=== PATIENT | male | born 1965 | race Caucasian/White ===

== ENCOUNTER → 2021-01-21 15:07 | Outpatient (BNVA) | payer OTHER, SELFPAY | PROVIDERS: PCP Internal Medicine; Referring Provider Internal Medicine; Visit Provider Surgery | DX: K64.4 Residual hemorrhoidal skin tags (principal) | CPT/HCPCS: 46600 ==

== ENCOUNTER 2023-01-25 09:55 | Emergency (ER) | payer OTHER, SELFPAY ==
--- NOTE | ~2023-01-25 | US_ITS ---
EXAMINATION: US ABDOMEN LIMITED CLINICAL INFORMATION: Right-sided abdominal pain. COMPARISON: None available. TECHNIQUE: Real-time imaging of the right upper quadrant abdominal viscera. FINDINGS: PANCREAS: Visualized portions unremarkable. LIVER: Diffuse increased echotexture without focal abnormality. GALLBLADDER: Unremarkable. COMMON BILE DUCT: Normal in caliber measuring 0.5 cm in diameter. RIGHT KIDNEY: 11.1 cm. Unremarkable. FREE FLUID: None. US/US abdomen limited IMPRESSION: Hepatic steatosis without other significant abnormality.
[2023-01-25 09:56] VITALS: BP 119/66; PULSE 74; RESP 16; TEMP 36.8; O2SAT 98; BMI 41.6
--- OUTSIDE RECORDS SUMMARY | 2023-01-25 10:12 | XMS_ITS | Continuity of Care Document ---
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 Name Role Phone Michael Eid MD Primary Care Physician Encounter [facility] [place] Date(s): 12/04/19 - 12/04/[address] [address]- [facility] Discharge Disposition: A-D/C Home Attending Physician: Sheldon Jackson MD Admitting Physician: Sheldon Jackson MD Referring Physician: Sheldon Jackson MD Allergies, Adverse Reactions, Alerts Substance Reaction Severity Status azithromycin upset stomach Active Vital Signs Most recent to oldest [Reference Range]: 1 2 3 Height 180 cm (12/04/19 10:05 AM) Weight 122.6 kg (12/04/19 10:05 AM) Oxygen Saturation [94-100 %] 97 % (12/04/19 1:36 PM) 99 % (12/04/19 12:45 PM) 99 % (12/04/19 12:39 PM) Pulse Rate [55-90 bpm] 81 bpm (12/04/19 10:05 AM) Body Mass Index [18.5-24.99] 37.84 *>HHI* (12/04/19 10:05 AM) Blood Pressure [90-138/55-84 mm Hg] 145/74mm Hg *H* (12/04/19 12:45 PM) 163/78mm Hg *H* (12/04/19 12:39 PM) 131/74mm Hg (12/04/19 12:05 PM) Respiratory Rate [16-30 br/min] 15 br/min *L* (12/04/19 12:39 PM) 11 br/min *L* (12/04/19 12:05 PM) 14 br/min *L* (12/04/19 12:00 PM) Temperature [96.8-100.4 DegF] 98.7 DegF (12/04/19 12:39 PM) 98.5 DegF (12/04/19 10:05 AM) Liters per Minute 2 L/min (12/04/19 12:05 PM) 2 L/min (12/04/19 12:00 PM) 2 L/min (12/04/19 11:55 AM) Mode of Delivery (Oxygen) Room air (12/04/19 1:36 PM) Room air (12/04/19 12:45 PM) Room air (12/04/19 12:39 PM) Blood pressure sites Arm, right (12/04/19 12:39 PM) Arm, left (12/04/19 11:55 AM) Arm, left (12/04/19 10:05 AM) Temperature Route Temporal (12/04/19 12:39 PM) Temporal (12/04/19 10:05 AM) Weight Obtained Via Standing scale (12/04/19 10:05 AM)
[2023-01-25 10:18] LABS: MANUAL DIFF FLAG NO
[2023-01-25 10:20] LABS: Basophils Percent Auto 0.2 % (0-2); Eosinophils Absolute Auto 0.2 X10*3/uL (0.0-0.4); Hematocrit 39.9 % (42.0-52.0); Hemoglobin 13.9 g/dl (14.0-18.0); Imm Gran Abs Auto 0.02 X10*3/uL (0.00-0.03); Imm Gran Pct Auto 0.2 % (0.0-0.4); Lymphocytes Absolute Auto 2.1 X10*3/uL (1.2-4.9); Lymphocytes Percent Auto 25.1 % (20-40); Mean Corpuscular HGB Conc 34.8 g/dl (31.0-36.0); Mean Corpuscular Hemoglobin 30.9 pg (27.0-33.0); Mean Corpuscular Volume 88.7 fL (80.0-98.0); Mean Platelet Volume 9.5 fL (9.4-12.4); Monocytes Absolute Auto 0.8 X10*3/uL (0.1-1.2); Monocytes Percent Auto 9.5 % (2-11); Neutrophils Absolute Auto 5.3 x10*3/uL (2.0-8.3); Platelet Count 245 X10*3/uL (160-400); Red Cell Distribution Width 12.2 % (11.0-16.0); White Blood Count 8.4 X10*3/uL (4.8-10.8)
[2023-01-25 10:35] LABS: Alanine Aminotransferase 25 U/L (0-40); Albumin Level 4.1 g/dL (3.5-5.0); Alkaline Phosphatase 64 U/L (39-117); Anion Gap 12 (12-20); Aspartate Amino Transferase 15 U/L (5-37); Bilirubin Total 0.7 mg/dL (0.0-1.0); Blood Urea Nitrogen 11 mg/dL (9-16); Calcium 9.1 mg/dL (8.4-10.2); Carbon Dioxide 24 mmol/L (22-29); Chloride 109 mmol/L (96-108); Creatinine Clr Calc Pharmacy 115.3; Estimated Glomerular Filt Rate > 60; Glucose Random 109 mg/dL (60-115); Potassium 4.4 mmol/L (3.3-5.1); Sodium 141 mmol/L (135-145); Total Protein 6.9 g/dL (6.5-8.0)
[2023-01-25 11:26] VITALS: BP 141/71; PULSE 66; RESP 16; TEMP 37.1; O2SAT 96
[2023-01-25 11:36] LABS: Appearance Urine Clear; Color Urine Yellow; Glucose Urine UA Negative (Negative); PH 8.5 (5.0-9.0); Urine Blood Negative (Negative)
[2023-01-25 11:37] LABS: Leukocyte Esterase Urine Negative (Negative); Nitrite Urine Negative (Negative); Urine Ketones Negative (Negative); Urine Protein Negative (Neg-Trace)
--- NOTE | 2023-01-25 11:46 | ED_ITS ---
HPI - Abdominal Pain General Chief Complaint: Abdominal Pain Stated Complaint: Sharp P Right Side Time Seen by Provider: 01/25/23 11:36 Source: patient Mode of arrival: ambulatory Limitations: no limitations History of Present Illness HPI narrative: 57-year-old male came in for evaluation of right upper quadrant abdominal pain. Patient's symptoms started 2 weeks ago mostly constant patient's symptoms worsen with standing or doing any yard work, food do not affect the pain, denies any fever or chills, no trauma or fall the abdomen. No fever, no chills, no recent travel, no sick contacts, no nausea, no vomiting, no blood in the bowel movement, normal bowel movement, no weight loss, never had similar symptoms before, no history of intra-abdominal surgery. Related Data Previous Rx's Medication Instructions Recorded losartan 50 mg tablet 50 mg PO DAILY #90 tabs 09/28/22 Allergies Allergy/AdvReac Type Severity Reaction Status Date / Time azithromycin AdvReac Unknown STOMACH Verified 04/08/21 14:22 UPSET Review of Systems Review of Systems All other systems are reviewed and are negative Constitutional: Reports as per HPI and Reports no additional constitutional complaints Eyes: Reports as per HPI and Reports no additional eye complaints Reports system reviewed and no additional complaints, except as documented Cardiovascular: Reports as per HPI and Reports no additional cardiovascular complaints Respiratory: Reports as per HPI and Reports no additional respiratory complaints Gastrointestinal: Reports as per HPI and Reports no additional gastrointestinal complaints Genitourinary: Reports no additional female genitourinary complaints Musculoskeletal: Reports no additional musculoskeletal complaints Skin/Breast: Reports system reviewed and no additional complaints, except as docu Psychiatric: Reports no additional psychiatric complaints Endocrine: Reports no additional endocrine complaints Hematologic/Lymphatic: Reports no additional hematologic/lymphatic complaints Allergic/Immunologic: Reports no additional allergic/immunologic complaints Reports system reviewed and no additional complaints, except as documented and Reports Abnormal speech present [facility] Past Medical History Medical History External hemorrhoids with complication Hypertension Morbid obesity Obesity Surgical History H/O detached retina repair History of colonoscopy Family History Family History Father Lung cancer Mother Dementia Brother MRSA (methicillin resistant staph aureus) culture positive Social History Social History Housing: House Alcohol intake: current Alcohol intake frequency: a few times a week Patient Tobacco Use Status: Never used Tobacco e-Cigarette/Vaping Use: Never Used Second Hand Smoke Exposure: No Advance Directives: No service: No Current occupational status: employed Physical Exam ED Vital Signs: Vital Signs - 24 hr 01/25/23 09:56 01/25/23 11:26 Temperature 98.2 F 98.7 F Pulse Rate 74 66 Respiratory Rate 16 16 Blood Pressure 119/66 141/71 H Pulse Oximetry 98 96 Oxygen Delivery Method Room Air Room Air BMI result Body Mass Index 41.6 Vital signs have been reviewed as appeared to be correct. Blood pressure normal. Heart rate normal. Respiration rate normal. Temperature normal. Oxygen saturation normal. Appearance: Alert. Oriented X3. No acute distress. Head: Normal external exam. Normocephalic. Atraumatic. No Mitchell signs noted. No raccoon eyes noted Eyes: PERRLA. EOMI. Conjunctiva and sclera normal. Eyelids normal. ENT: TM's Normal. Pharynx normal. Uvula midline. Moist mucous membranes. No trismus noted. No drooling noted. No muffled voice noted. Neck: Normal inspection. Neck supple. FROM. No adenopathy. Thyroid Normal. No meningeal signs. No neck mass noted. CVS: Normal heart rate and rhythm. Heart sound normal. No murmurs noted. Pulses normal throughout. Respiratory: No respiratory distress. Painless inspiration. Breath sounds normal. No wheezes/rales/rhonchi noted. Chest nontender. No accessory muscle usage noted or decreased air movement noted. Abdomen: Soft, no tenderness, no guarding, no rebound tenderness.. Bowel sounds normal in all 4 quadrants. No distention noted. No organomegaly noted. No visible injury noted. Back: No CVA tenderness. Full range of motion noted. Skin: Skin warm and dry. Normal skin color. Normal skin turgor. No rashes/lesions/lacerations noted. Extremities: No lower extremity edema. Extremities exhibit normal range of motion. Extremities nontender. Neuro: Oriented X 3. Cranial nerve exam: II-XII are grossly intact No motor deficit. No sensory deficit. Reflexes normal. Course Course Course Narrative: A 57-year-old male came in for evaluation of right upper abdominal area pain pain is more with standing or sitting for longer time, unremarkable workup an ultrasound of the abdomen and pelvis, as discussed with the patient bed rest, using heating pad. Medical Decision Making Differential Diagnosis Differential Diagnoses: The differential diagnosis associated with the presentation includes (ACS, biliary colic, pancreatitis, gastritis, kidney stone, severe electrolyte abnormality, severe anemia.) Admission/Observation Consideration of admission/observation: Escalation of care including admission/observation considered Lab Data MDM Lab Attestation statement: I reviewed the patient's lab results. 01/25/23 10:14 01/25/23 10:14 Labs: Lab Results 01/25/23 01/25/23 01/25/23 Range/Units 10:14 10:14 11:30 WBC 8.4 (4.8-10.8) X10*3/uL RBC 4.50 L (4.60-5.80) X10*6/uL Hgb 13.9 L (14.0-18.0) g/dl Hct 39.9 L (42.0-52.0) % MCV 88.7 (80.0-98.0) fL MCH 30.9 (27.0-33.0) pg MCHC 34.8 (31.0-36.0) g/dl RDW 12.2 (11.0-16.0) % Plt Count 245 (160-400) X10*3/uL MPV 9.5 (9.4-12.4) fL Immature Gran % (Auto) 0.2 (0.0-0.4) % Neut % (Auto) 63.0 (45-73) % Lymph % (Auto) 25.1 (20-40) % [place] % (Auto) 9.5 (2-11) % Eos % (Auto) 2.0 (0-4) % Baso % (Auto) 0.2 (0-2) % Lymph # (Auto) 2.1 (1.2-4.9) X10*3/uL [place] # (Auto) 0.8 (0.1-1.2) X10*3/uL Eos # (Auto) 0.2 (0.0-0.4) X10*3/uL Baso # (Auto) 0.0 (0.0-0.2) X10*3/uL Abs Immat Gran (auto) 0.02 (0.00-0.03) X10*3/uL Absolute Neuts (auto) 5.3 (2.0-8.3) x10*3/uL Absolute Nucleated RBC 0.000 (0.0-0.012) X10*3/uL Nucleated RBC % (auto) 0.0 (0.0-0.2) /100WBC Sodium 141 (135-145) mmol/L Potassium 4.4 (3.3-5.1) mmol/L Chloride 109 H (96-108) mmol/L Carbon Dioxide 24 (22-29) mmol/L Anion Gap 12 (12-20) BUN 11 (9-16) mg/dL Creatinine 0.94 (0.5-1.4) mg/dL Estim Creat Clear Calc 115.3 Estimated GFR > 60 Random Glucose 109 (60-115) mg/dL Calcium 9.1 (8.4-10.2) mg/dL Total Bilirubin 0.7 (0.0-1.0) mg/dL AST 15 (5-37) U/L ALT 25 (0-40) U/L Alkaline Phosphatase 64 (39-117) U/L Troponin I High Sens (<3.5-35.0) ng/L Total Protein 6.9 (6.5-8.0) g/dL Albumin 4.1 (3.5-5.0) g/dL Lipase 27 (8-78) U/L Urine Color Yellow Urine Appearance Clear Urine pH 8.5 (5.0-9.0) Ur Specific [place] 1.020 (1.005-1.025) Urine Protein Negative (Neg-Trace) mg/dL Urine Glucose (UA) Negative (Negative) mg/dL Urine Ketones Negative (Negative) mg/dL Urine Blood Negative (Negative) Urine Nitrite Negative (Negative) Ur Leukocyte Esterase Negative (Negative) 01/25/23 Range/Units 13:17 WBC (4.8-10.8) X10*3/uL RBC (4.60-5.80) X10*6/uL Hgb (14.0-18.0) g/dl Hct (42.0-52.0) % MCV (80.0-98.0) fL MCH (27.0-33.0) pg MCHC (31.0-36.0) g/dl RDW (11.0-16.0) % Plt Count (160-400) X10*3/uL MPV (9.4-12.4) fL Immature Gran % (Auto) (0.0-0.4) % Neut % (Auto) (45-73) % Lymph % (Auto) (20-40) % [place] % (Auto) (2-11) % Eos % (Auto) (0-4) % Baso % (Auto) (0-2) % Lymph # (Auto) (1.2-4.9) X10*3/uL [place] # (Auto) (0.1-1.2) X10*3/uL Eos # (Auto) (0.0-0.4) X10*3/uL Baso # (Auto) (0.0-0.2) X10*3/uL Abs Immat Gran (auto) (0.00-0.03) X10*3/uL Absolute Neuts (auto) (2.0-8.3) x10*3/uL Absolute Nucleated RBC (0.0-0.012) X10*3/uL Nucleated RBC % (auto) (0.0-0.2) /100WBC Sodium (135-145) mmol/L Potassium (3.3-5.1) mmol/L Chloride (96-108) mmol/L Carbon Dioxide (22-29) mmol/L Anion Gap (12-20) BUN (9-16) mg/dL Creatinine (0.5-1.4) mg/dL Estim Creat Clear Calc Estimated GFR Random Glucose (60-115) mg/dL Calcium (8.4-10.2) mg/dL Total Bilirubin (0.0-1.0) mg/dL AST (5-37) U/L ALT (0-40) U/L Alkaline Phosphatase (39-117) U/L Troponin I High Sens < 2.7 (<3.5-35.0) ng/L Total Protein (6.5-8.0) g/dL Albumin (3.5-5.0) g/dL Lipase (8-78) U/L Urine Color Urine Appearance Urine pH (5.0-9.0) Ur Specific [place] (1.005-1.025) Urine Protein (Neg-Trace) mg/dL Urine Glucose (UA) (Negative) mg/dL Urine Ketones (Negative) mg/dL Urine Blood (Negative) Urine Nitrite (Negative) Ur Leukocyte Esterase (Negative) Independent Interpretation I performed an independent interpretation of an: Ultrasound (Abdomen: Hepatic steatosis without other significant abnormality.) Radiology Impression Discussion of test interpretation with radiology: I have reviewed the radiologist's reading. (Hepatic steatosis without other significant abnormality.) Discharge Plan Discharge Clinical Impression: Pulled muscle Patient Disposition: Home, Self-Care Instructions: Muscle Strain (DC) Additional Instructions: Take ibuprofen 200 mg tablet /or Tylenol 500 mg tablet ([id number]) every 8 hours if needed for pain. Prescriptions: No Action losartan 50 mg tablet 50 mg PO DAILY Qty: 90 8RF Referrals: Michael Eid MD [Primary Care Provider] - Stand Alone Forms: Work/School Release Interventions: ED Discharge Assessment Last Done: 01/25/23 14:38 Discharge Date/Time: 01/25/23 14:39
[2023-01-25 12:16] LABS: Lipase 27 U/L (8-78)
[2023-01-25 14:09] LABS: Troponin-I High Sensitivity < 2.7 ng/L (<3.5-35.0)
== END 2023-01-25 14:39 | disposition home or self-care (01) ==
PROVIDERS: Emergency Provider Emergency Medicine; PCP Internal Medicine
DX: R10.11 Right upper quadrant pain (principal); Z79.899 Other long term (current) drug therapy
CPT/HCPCS: 36415; 76705; 80053; 81003; 83690; 84484; 85025; 99283; 99284

== ENCOUNTER 2023-10-21 09:54 | Outpatient (AMB) | payer OTHER, SELFPAY ==
[2023-10-21 09:57] VITALS: BP 132/90; PULSE 55; O2SAT 95; BMI 42.5
--- NOTE | 2023-10-21 09:57 | A.OFFPC_ITS ---
Vital Signs 10/21/23 09:57 Height 5 ft 10 in Weight 296 lb 0.6 oz BMI 42.5 BP 132/90 H Blood Pressure Location Lt brachial Position Sitting Pulse 55 Pulse Source Pulse Oximeter Pulse Oximetry (%) 95 Oxygen Delivery Method Room Air Intake Visit Reasons: annual exam not seen since 2020 Intake Note: Patient is here today for a physical. Bindery Helper Required: No Accompanied by: Self / Same As Patient Allergies azithromycin Adverse Reaction (Unknown, Verified 10/21/23 09:57) STOMACH UPSET Medication List - Last Reconciled 10/21/23 by Michael Eid MD losartan 50 mg PO DAILY timolol maleate 0.5% 1 drp ophthalmic (eye) BID Tobacco use date assessed: 10/21/23 Dental Screening Dental Screen Date: 10/21/23 Did you have a dental visit in the last 12 months?: Yes Did you have a dental problem in the last 6 months where you did not have access to dental care?: No Was dental information given to patient?: Patient has dentist HPI annual exam not seen since 2020 HPI Details HTN on Rx; compliant PFSH Medical History External hemorrhoids with complication Hypertension Morbid obesity Obesity Surgical History H/O detached retina repair History of colonoscopy Family History Father Lung cancer Mother Dementia Brother MRSA (methicillin resistant staph aureus) culture positive Social History Housing: House Alcohol intake: current Alcohol intake frequency: a few times a week Patient Tobacco Use Status: Never used Tobacco e-Cigarette/Vaping Use: Never Used Second Hand Smoke Exposure: No service: No Current occupational status: employed Cognitive needs: No Hearing needs: No Vision needs: No Questionnaire PHQ-9 Over the last 2 weeks, how often have you been bothered by any of the following problems? 1. Little interest or pleasure in doing things: not at all 2. Feeling down, depressed, or hopeless: not at all 3. Trouble falling or staying asleep, or sleeping too much: not at all 4. Feeling tired or having little energy: not at all 5. Poor appetite or overeating: not at all 6. Feeling bad about yourself - or that you are a failure or have let yourself or your family down: not at all 7. Trouble concentrating on things, such as reading the newspaper or watching television: not at all 8. Moving or speaking so slowly that other people could have noticed. Or the opposite - being so fidgety or restless that you have been moving around a lot more than usual: not at all 9. Thoughts that you would be better off or of hurting yourself in some way: not at all Total score: 0 Depression Screening Interpretation: Negative Depression Screening Done: Yes 12557 - PHQ-9 Billing: Yes Source: Developed by Drs. Bandar Medrano, Kadie Thomas, Claude Penny and colleagues, with an educational shaun from [employer]. Thrive Questionnaire Date Thrive assessed: 10/21/23 I am a: Patient What is your living situation today?: I have a steady place to live Within the past 12 months, did the food you bought not last and you didn't have the money to get more?: Never true Within the past 12 months, did you worry whether your food would run out before you got money to buy more?: Never true Do you have trouble paying for medicines?: No Do you have trouble getting transportation to medical appointments?: No Do you have trouble paying your heating and electricity bill?: No Do you have trouble taking care of your child, family member or friend?: No Do you have trouble with day-to-day activities such as bathing, preparing meals, shopping, managing finances, etc.?: No Are you currently unemployed and looking for a job?: No Are you interested in more education?: No Please select the resources that you would like help with: None Currently or been in a relationship where the following occur: no concerns reported THRIVE Score: 0 AUDIT C Alcohol Use Questionnaire (AUDIT-C) 1. How often do you have a drink containing alcohol?: 2-3 times a week 2. How many drinks containing alcohol do you have on a typical day when you are drinking?: 3 or 4 3. How often do you have six or more drinks on one occasion?: Never Total Score: 4 Score Reviewed/Action Taken: Yes SRINIVAS-7 AMB Questionnaire SRINIVAS-7 Date SRINIVAS - 7 assessed: 10/21/23 Feeling nervous, anxious, or on edge: 0 = Not at all Not being able to stop or control worryin = Not at all Worrying too much about different things: 0 = Not at all Trouble relaxin = Not at all Being so restless that it is hard to sit still: 0 = Not at all Becoming easily annoyed or irritable: 0 = Not at all Feeling afraid as if something awful might happen: 0 = Not at all Total SRINIVAS-7 score (0-4 normal; 5-9 mild; 10-14 moderate; 15-21 severe): 0 Source: Developed by Drs. Bandar Medrano, Kadie Thomas, Claude Penny and colleagues, with an educational shaun from [employer]. SRINIVAS-7 Assessment Billing SRINIVAS-7 Assessment Tool: SRINIVAS-7 Assessment 29827 Review of Systems Const Denies chills, Denies fatigue, Denies headache(s) and Denies weight loss Eyes Denies change in vision, Denies diplopia and Denies eye pain ENT Denies vertigo, Denies dizziness, Denies headache(s) and Denies nasal discharge Card Denies chest pain, Denies rapid heart rate and Denies dyspnea on exertion Resp Denies chest congestion, Denies cough, Denies pain with cough and Denies dyspnea on exertion GI Denies abdominal pain, Denies hematochezia and Denies change in bowel habits Musc Denies myalgias, Denies arthralgias and Denies joint swelling Skin/Breast Denies lesions and Denies unusual bruising Neuro Denies vertigo, Denies dizziness, Denies headache(s) and Denies focal weakness Endo Denies fatigue Physical exam (Primary Care) Vital Signs: Last Vital Signs Pulse 55 10/21/23 09:57 BP 132/90 H 10/21/23 09:57 Pulse Ox 95 10/21/23 09:57 Oxygen Delivery Method Room Air 10/21/23 09:57 BMI result Body Mass Index 42.5 Tobacco/Smoking Status: Tobacco use Status Tobacco use date assessed 10/21/23 10/21/23 09:58 Patient Tobacco Use Status Never used Tobacco 10/21/23 09:58 e-Cigarette/Vaping Use Never Used 10/21/23 09:58 PHQ-9: PHQ-9 Score PHQ-9: Total score 0 10/21/23 09:58 Depression Screening Interpretation: Negative Thrive Assessment: Date of Thrive Assessment Date Thrive assessed 10/21/23 10/21/23 10:03 Currently or been in a relationship where the following occur: no concerns reported Const General: cooperative, healthy appearing and no acute distress Orientation/consciousness: oriented to person, oriented to place and oriented to time HENMT Head: Yes normal to inspection, Yes normocephalic and Yes atraumatic Mouth: Normal oral and palatal mucosa present and tongue normal Throat: Yes posterior oropharynx normal and Yes uvula midline Eyes General: appearance normal, both eyes and all related structures Neck Neck: Yes normal visual inspection, Yes full ROM and Yes no lymphadenopathy Thyroid: Thyroid normal Carotids: normal carotid upstroke Chest Chest palpation & inspection: normal inspection of the chest Resp Effort & Inspection: normal respiratory effort and able to speak in complete sentences Auscultation: clear to auscultation bilaterally Cardio Jugular venous distension: no JVD Palpation: normal PMI Rate: regular rate Rhythm: regular rhythm Heart sounds: S1 normal heart sound present and S2 normal heart sound present GI Inspection: Yes normal to inspection Palpation (GI): Soft to palpation and No hepatosplenomegaly present Auscultation: normal bowel sounds General: Yes no CVA tenderness Back/Spine/Pelvis Back: no CVA tenderness Skin General skin exam: no rashes or lesions noted Neuro General: oriented to person, oriented to place and oriented to time Extrem General: Yes normal to inspection and Yes full ROM Assessment and Plan Assessment & Plan (1) Physical exam, annual: Code(s): Z00.00 - Encounter for general adult medical examination without abnormal findings Plan: due for labs (2) Hypertension: Code(s): I10 - Essential (primary) hypertension Plan: stable; same rx Orders: Orders Lipid Panel Today Z13.220 - Encounter for screening for lipoid disorders Thyroid Stimulating Hormone Today Z13.29 - Encounter for screening for other suspected endocrine disorder Complete Blood Count Auto Diff Today Z13.0 - Encounter for screening for diseases of the blood and blood-forming organs and certain disorders involving the immune mechanism Comprehensive [place]. Panel Fast Today Z13.9 - Encounter for screening, unspecified Prostate Specific Antigen Scr Today Z00.00 - Encounter for general adult medical examination without abnormal findings Referrals Gastroenterology Referral Z12.11 - Encounter for screening for malignant neoplasm of colon Coding Level of Care Code New Pt Prev Care 40-64y(64162) Diagnoses Physical exam, annual Z00.00 Hypertension I10 Additional Codes SRINIVAS-7 Assessment Billing - SRINIVAS-7 Assessment Tool: SRINIVAS-7 Assessment [id number] ([id number])
== END 2023-10-21 10:16 | disposition home or self-care (01) ==
PROVIDERS: PCP Internal Medicine; Visit Provider Internal Medicine
DX: Z00.00 Encounter for general adult medical examination without abnormal findings (principal); I10 Essential (primary) hypertension; E66.01 Morbid (severe) obesity due to excess calories; Z68.41 Body mass index [BMI] 40.0-44.9, adult
CPT/HCPCS: 99396

== ENCOUNTER 2023-10-21 10:21 | Outpatient (REF) | payer OTHER, SELFPAY ==
[2023-10-21 10:30] LABS: MANUAL DIFF FLAG NO
[2023-10-21 10:46] LABS: Basophils Percent Auto 0.4 % (0-2); Eosinophils Absolute Auto 0.2 X10*3/uL (0.0-0.4); Eosinophils Percent Auto 2.1 % (0-4); Hematocrit 45.5 % (42.0-52.0); Hemoglobin 15.7 g/dl (14.0-18.0); Imm Gran Abs Auto 0.02 X10*3/uL (0.00-0.03); Imm Gran Pct Auto 0.2 % (0.0-0.4); Lymphocytes Absolute Auto 2.3 X10*3/uL (1.2-4.9); Mean Corpuscular HGB Conc 34.5 g/dl (31.0-36.0); Mean Corpuscular Volume 89.9 fL (80.0-98.0); Mean Platelet Volume 9.6 fL (9.4-12.4); Monocytes Absolute Auto 0.7 X10*3/uL (0.1-1.2); Monocytes Percent Auto 8.7 % (2-11); Neutrophils Absolute Auto 5.3 x10*3/uL (2.0-8.3); Neutrophils Percent Auto 61.6 % (45-73); Platelet Count 258 X10*3/uL (160-400); Red Blood Count 5.06 X10*6/uL (4.60-5.80); Red Cell Distribution Width 12.3 % (11.0-16.0); White Blood Count 8.5 X10*3/uL (4.8-10.8)
[2023-10-21 11:32] LABS: Alanine Aminotransferase 29 U/L (0-40); Albumin Level 4.4 g/dL (3.5-5.0); Alkaline Phosphatase 69 U/L (39-117); Anion Gap 14 (12-20); Aspartate Amino Transferase 17 U/L (5-37); Bilirubin Total 0.7 mg/dL (0.0-1.0); Blood Urea Nitrogen 11 mg/dL (9-16); Calcium 10.1 mg/dL (8.4-10.2); Carbon Dioxide 27 mmol/L (22-29); Chloride 104 mmol/L (96-108); Cholesterol 219 mg/dL (<200); Estimated Glomerular Filt Rate > 60; Glucose Fasting 117 mg/dL (60-99); HDL Cholesterol 51 mg/dL (>40); LDL Cholesterol Calculated 142 mg/dL (<100); Potassium 5.4 mmol/L (3.3-5.1); Sodium 140 mmol/L (135-145); Total Protein 7.5 g/dL (6.5-8.0); Triglycerides 131 mg/dL (<150)
[2023-10-21 11:50] LABS: Thyroid Stimulating Hormone 1.88 uIU/mL (0.32-4.0)
== END 2023-10-21 10:22 | disposition home or self-care (01) ==
LOC: HO.LAB 10:21
PROVIDERS: PCP Internal Medicine; Visit Provider Internal Medicine
DX: Z13.29 Encounter for screening for other suspected endocrine disorder (principal); Z00.00 Encounter for general adult medical examination without abnormal findings; Z12.5 Encounter for screening for malignant neoplasm of prostate; Z13.220 Encounter for screening for lipoid disorders; Z13.0 Encounter for screening for diseases of the blood and blood-forming organs and certain disorders involving the immune mechanism; Z13.9 Encounter for screening, unspecified
CPT/HCPCS: 36415; 80053; 80061; 84153; 84443; 85025

== ENCOUNTER 2024-01-23 12:51 | Outpatient (AMB) | payer OTHER, SELFPAY ==
[2024-01-23 12:56] VITALS: BP 144/82; PULSE 78; O2SAT 96; BMI 41.5
--- NOTE | 2024-01-23 12:56 | MHC.PC.OV ---
Vital Signs 01/23/24 12:56 Height 5 ft 10 in Weight 289 lb BMI 41.5 BP 144/82 H Blood Pressure Location Lt brachial Position Sitting Pulse 78 Pulse Source Pulse Oximeter Pulse Oximetry (%) 96 Oxygen Delivery Method Room Air Intake Visit Reasons: gout Allergies azithromycin Adverse Reaction (Unknown, Verified 01/23/24 12:57) STOMACH UPSET Medication List - Last Reconciled 01/23/24 by Michael Eid MD losartan 50 mg PO DAILY timolol maleate 0.5% 1 drp ophthalmic (eye) BID Tobacco use date assessed: 10/21/23 Dental Screening Dental Screen Date: 10/21/23 HPI gout HPI Details gout right great toe for a few days PFSH Medical History External hemorrhoids with complication Hypertension Morbid obesity Obesity Surgical History H/O detached retina repair History of colonoscopy Family History Father Lung cancer Mother Dementia Brother MRSA (methicillin resistant staph aureus) culture positive Social History Housing: House Alcohol intake: current Alcohol intake frequency: a few times a week Patient Tobacco Use Status: Never used Tobacco Tobacco use type: Cigarette e-Cigarette/Vaping Use: Never Used Second Hand Smoke Exposure: No service: No Current occupational status: employed Cognitive needs: No Hearing needs: No Vision needs: No Questionnaire PHQ-9 Over the last 2 weeks, how often have you been bothered by any of the following problems? 1. Little interest or pleasure in doing things: not at all 2. Feeling down, depressed, or hopeless: not at all 3. Trouble falling or staying asleep, or sleeping too much: not at all 4. Feeling tired or having little energy: not at all 5. Poor appetite or overeating: not at all 6. Feeling bad about yourself - or that you are a failure or have let yourself or your family down: not at all 7. Trouble concentrating on things, such as reading the newspaper or watching television: not at all 8. Moving or speaking so slowly that other people could have noticed. Or the opposite - being so fidgety or restless that you have been moving around a lot more than usual: not at all 9. Thoughts that you would be better off or of hurting yourself in some way: not at all Total score: 0 Depression Screening Interpretation: Negative Depression Screening Done: Yes 42486 - PHQ-9 Billing: Yes Source: Developed by Drs. Bandar Medrano, Kadie Thomas, Claude Penny and colleagues, with an educational shaun from [employer]. Thrive Questionnaire Date Thrive assessed: 10/21/23 AUDIT C Alcohol Use Questionnaire (AUDIT-C) 1. How often do you have a drink containing alcohol?: 2-3 times a week 2. How many drinks containing alcohol do you have on a typical day when you are drinking?: 3 or 4 3. How often do you have six or more drinks on one occasion?: Never Total Score: 4 Score Reviewed/Action Taken: Yes SRINIVAS-7 AMB Questionnaire SRINIVAS-7 Date SRINIVAS - 7 assessed: 10/21/23 Source: Developed by Drs. Bandar Medrano, Kadie Tohmas, Claude Penny and colleagues, with an educational shaun from [employer]. Review of Systems Const Denies chills, Denies headache(s) and Denies weight loss ENT Denies headache(s) Card Denies chest pain, Denies syncope, Denies irregular heart rhythm and Denies dyspnea Resp Denies chest congestion, Denies cough and Denies dyspnea GI Denies abdominal pain, Denies change in stool character, Denies nausea and Denies vomiting Musc Denies deformity and Denies joint swelling Neuro Denies syncope and Denies headache(s) Physical exam (Primary Care) Vital Signs: Last Vital Signs Pulse 78 01/23/24 12:56 BP 144/82 H 01/23/24 12:56 Pulse Ox 96 01/23/24 12:56 Oxygen Delivery Method Room Air 01/23/24 12:56 BMI result Body Mass Index 41.5 Tobacco/Smoking Status: Tobacco use Status Tobacco use date assessed 10/21/23 01/23/24 13:02 Patient Tobacco Use Status Never used Tobacco 01/23/24 13:02 Tobacco use type Cigarette 01/23/24 13:02 e-Cigarette/Vaping Use Never Used 08/05/24 13:02 PHQ-9: PHQ-9 Score PHQ-9: Total score 0 01/23/24 13:02 Depression Screening Interpretation: Negative Thrive Assessment: Date of Thrive Assessment Date Thrive assessed 10/21/23 01/23/24 13:02 Const General: cooperative, comfortable, no acute distress and alert Neck Neck: Yes no lymphadenopathy Thyroid: Thyroid normal Resp Effort & Inspection: normal respiratory effort Auscultation: clear to auscultation bilaterally Percussion: percussion normal Cardio Jugular venous distension: no JVD Palpation: normal PMI Rate: regular rate Rhythm: regular rhythm Heart sounds: S1 normal heart sound present and S2 normal heart sound present GI Inspection: Yes normal to inspection Palpation (GI): No hepatosplenomegaly present Skin General skin exam: no rashes or lesions noted Extrem Other: right mtp joint swollen red and tender Assessment and Plan Assessment & Plan (1) Gout attack: Code(s): M10.9 - Gout, unspecified Plan: rx sent Medications: New methylprednisolone (Medrol (Terry)) PO PER PKG DIR 21 ea 0RF indomethacin administer with food or milk 25 mg PO QID 30 caps 0RF Coding Level of Care Code Est Pt Level 3 (97154) Diagnoses Gout attack M10.9
== END 2024-01-23 13:14 | disposition home or self-care (01) ==
PROVIDERS: PCP Internal Medicine; Visit Provider Internal Medicine
DX: M10.9 Gout, unspecified (principal)
CPT/HCPCS: 99213

== ENCOUNTER 2024-03-27 07:44 | Day surgery (SDC) | payer OTHER, SELFPAY ==
[2024-03-23 13:08] VITALS: BMI 42.2
--- NOTE | 2024-03-26 09:35 | HO.ANESPROP2 ---
Documented by User: Mckenna Freedman NP 03/26/24 09:35 HPI - Anesthesia Eval Consult details Narrative: 58yo M for Colonoscopy PMFSH Active Problems Active Problems: All Active Problems Gout attack (Acute) Physical exam, annual (Acute) Obesity (Acute) Preop exam for internal medicine (Acute) External hemorrhoids with complication (Acute) Morbid obesity (Acute) Hypertension (Acute) Past Medical History Medical History Obesity External hemorrhoids with complication Morbid obesity Hypertension Family History Family History Father Lung cancer Mother Dementia Brother MRSA (methicillin resistant staph aureus) culture positive Surgical History Surgical History H/O detached retina repair History of colonoscopy Social History Social History Housing: House Are you a primary pet care assistant to a significant other at home: No Do you presently have visiting nurse or other home services: No Alcohol intake: current Alcohol intake frequency: a few times a month Patient Tobacco Use Status: Never used Tobacco Tobacco use type: Cigarette e-Cigarette/Vaping Use: Never Used Second Hand Smoke Exposure: No Use of substances other than those prescribed or required for medical reasons: No Have you been hit, kicked, punched, or otherwise hurt by someone within the past year? If so, by whom?: No Are you DNR?: No Advance Directives: No Advance Directives Information Provided: Yes Recently lost weight without trying: No service: No Current occupational status: employed Cognitive needs: No Hearing needs: No Vision needs: No Meds Allergies Allergy/AdvReac Type Severity Reaction Status Date / Time azithromycin AdvReac Unknown STOMACH Verified 01/23/24 12:57 UPSET Home Medications ?Medication ?Instructions ?Recorded ?Confirmed ?Last Taken ?Type timolol maleate 0.5 % eye drops 1 drp ophthalmic (eye) BID 10/21/23 01/23/24 Unknown History Exam Height,Weight and Vital Signs: Height 5 ft 10 in Weight 133.413 kg Assessment and Plan Assessment Anesthesia Assessment: Chart Reviewed Documented by User: Halley Quintanilla MD 03/27/24 08:32 PMF Past Medical History Medical History Obesity External hemorrhoids with complication Morbid obesity Hypertension Family History Family History Father Lung cancer Mother Dementia Brother MRSA (methicillin resistant staph aureus) culture positive Family history of problems with anesthesia: No Surgical History Surgical History H/O detached retina repair History of colonoscopy History of Problems with Anesthesia: No Social History Social History Housing: House Are you a primary pet care assistant to a significant other at home: No Do you presently have visiting nurse or other home services: No Alcohol intake: current Alcohol intake frequency: a few times a month Patient Tobacco Use Status: Never used Tobacco Tobacco use type: Cigarette e-Cigarette/Vaping Use: Never Used Second Hand Smoke Exposure: No Use of substances other than those prescribed or required for medical reasons: No Have you been hit, kicked, punched, or otherwise hurt by someone within the past year? If so, by whom?: No Are you DNR?: No Advance Directives: No Advance Directives Information Provided: Yes Recently lost weight without trying: No service: No Current occupational status: employed Cognitive needs: No Hearing needs: No Vision needs: No Meds Allergies Allergy/AdvReac Type Severity Reaction Status Date / Time azithromycin AdvReac Unknown STOMACH Verified 01/23/24 12:57 UPSET Home Medications ?Medication ?Instructions ?Recorded ?Confirmed ?Last Taken ?Type timolol maleate 0.5 % eye drops 1 drp ophthalmic (eye) BID 10/21/23 01/23/24 Unknown History Exam Airway Mallampati Class: III TM Dist: <=3cm Neck ROM: Full Heart: rrr4 Lungs: cta Assessment and Plan Assessment Anesthesia Assessment: Anesthesia Plan Discussed Final Anesthetic Review Family History of Problems with Anesthesia: No History of Problems with Anesthesia: No ASA Class: III Final Preanesthetic Review: No Changes in Pt Med Stat, Meds/Allgs Chart Reviewed, Consent Obtained/Reviewed and Anes Risks/Benef Reviewed Patient Risk: Intermediate Procedure Risk: Low Anesthetic Plan Anesthetic Plan: MAC: Disposition: Standard PACU
[2024-03-27 07:55] VITALS: BP 175/94; PULSE 70; RESP 16; TEMP 36.9; O2SAT 100; BMI 42.2
[2024-03-27] MEDS: Lactated Ringers 1,000 ML 100 ML IVCONT (08:29)
--- NOTE | 2024-03-27 09:53 | P.HPSUR_ITS ---
Pre-Procedural Eval Section A - 24 Hr Update-Section A only Date of Service: 03/27/24 Section B - Complete if H&P > 30 days Chief Complaint: screening Details of Present Illness: see HP no changes Relevant Family History (Specify if Yes): No Relevant Social History: None Present Medications: None Medical History: No relevant PMH History of Previous Operations: No relevant previous surgery Allergies: Allergies Allergy/AdvReac Type Severity Reaction Status Date / Time azithromycin AdvReac Unknown STOMACH Verified 01/23/24 12:57 UPSET Review of Systems Sugical H&P ROS: Negative: Constitution, Cardiovascular, Respiratory, Neuro logical, Psychiatric, Hem-Onc, Allergic/Immunologic, Gastrointestinal, Genitourinary, Musculoskeletal, Integumentary, Endocrine and Eyes/Ears/Nose/Throat Exam Surgical H&P Exam: Normal: HEENT, Normal: Heart, Normal: Lungs, Normal: Extremities, Normal: Abdomen, Normal: Skin and Normal: Neurological Plan Diagnosis/Plan: Unchanged I have reviewed the history and physical and performed a pertinent physical examination on my patient. No changes have occurred unless specified. Time Spent With Patient Time: Total time managing care of this patient today ____ minutes.
[2024-03-27 10:26] VITALS: BP 122/60; PULSE 78; RESP 16; TEMP 36.4; O2SAT 97
[2024-03-27 10:41] VITALS: BP 147/82; PULSE 65; RESP 20; TEMP 36.8; O2SAT 97
--- NOTE | 2024-03-27 11:15 | OP_ITS ---
DATE OF SERVICE: 03/27/2024 SURGEON: Reymundo Culp MD INDICATIONS: Colon cancer screening. PREOPERATIVE DIAGNOSIS: POSTOPERATIVE DIAGNOSIS: PROCEDURE PERFORMED: Colonoscopy to the terminal ileum with biopsy. ESTIMATED BLOOD LOSS: COMPLICATIONS: ANESTHESIA: Monitored anesthesia care. ASSISTANTS: SPECIMENS: DESCRIPTION OF PROCEDURE: A history and physical was performed. The risks and benefits of the procedure were explained to the patient and informed consent was obtained. The patient was placed in the left lateral decubitus position. A digital rectal exam was performed and was found to be normal. The Olympus pediatric video colonoscope was introduced into the rectum and advanced to the cecum. The cecum was identified by transillumination, palpation, and identification of the ileocecal valve. Examination was performed and the scope was removed. He tolerated the procedure well and was returned to recovery area in stable condition. FINDINGS: The terminal ileum was examined and appeared normal. The visualized colonic mucosa was normal. The quality of the prep was good. A single polyp measuring less than 5 mm was identified in the right colon. This was removed with biopsy forceps. No other polyps were identified. Retroflexed examination was normal. There was mild sigmoid diverticulosis. IMPRESSION: Colon polyp. RECOMMENDATION: Follow up the biopsy results. MD VICKI Munroe/KRISTINE / [id number]
== END 2024-03-27 11:00 | disposition home or self-care (01) ==
PROVIDERS: PCP Internal Medicine; Visit Provider Internal Medicine Gastroenterology
PROC: 0DJD8ZZ Inspection of Lower Intestinal Tract, Via Natural or Artificial Opening Endoscopic (ICD-10-PCS; CPT 45378; principal; 2024-03-27 09:10)
DX: Z12.11 Encounter for screening for malignant neoplasm of colon (principal); Z86.0101 Personal history of adenomatous and serrated colon polyps; D12.2 Benign neoplasm of ascending colon; K57.30 Diverticulosis of large intestine without perforation or abscess without bleeding; K58.0 Irritable bowel syndrome with diarrhea; K21.9 Gastro-esophageal reflux disease without esophagitis; M10.9 Gout, unspecified; I10 Essential (primary) hypertension; E66.01 Morbid (severe) obesity due to excess calories; Z68.41 Body mass index [BMI] 40.0-44.9, adult; Z79.899 Other long term (current) drug therapy; Z88.1 Allergy status to other antibiotic agents; Z98.890 Other specified postprocedural states
CPT/HCPCS: 45380; 88305; J1596; J2003; J2704

== ENCOUNTER 2024-10-05 12:16 | Outpatient (AMB) | payer OTHER, SELFPAY ==
--- NOTE | 2024-10-05 12:40 | MHC.PC.OV ---
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: No Was dental information given to patient?: Patient has dentist HPI DYAN Dr Eid HPI Details Patient comes in today for his annual physical examination - is transferring care over from Dr. Eid, who retired from the practice last month Patient states that he feels okay He denies any headaches or dizziness Denies any chest pains, no SOB No nausea/vomiting, no abdominal pain No change in bowel habits noted He denies any acute urinary symptoms States that he has not had any flare up of his gout recently He had his screening colonoscopy last done with Dr. Culp back on 03/27/2024 - he had a polyp removed that came out as a tubular adenoma on pathology and he is recommended for a repeat colonoscopy in 5 years (2028) PFSH Medical History (Updated 10/05/24 @ 14:00 by Jean Mooney MD) Glaucoma Tubular adenoma of colon Morbid obesity with BMI of 40.0-44.9, adult Impaired fasting glucose Pure hypercholesterolemia Gout Essential hypertension External hemorrhoids with complication Surgical History (Updated 10/05/24 @ 13:30 by Jean Mooney MD) H/O detached retina repair History of colonoscopy Family History Father Lung cancer Mother Dementia Brother MRSA (methicillin resistant staph aureus) culture positive Social History Housing: House Are you a primary rn care transition to a significant other at home: No Do you presently have visiting nurse or other home services: No Alcohol intake: current Alcohol intake frequency: a few times a month Patient Tobacco Use Status: Never used Tobacco Tobacco use type: Cigarette e-Cigarette/Vaping Use: Never Used Second Hand Smoke Exposure: No service: No Current occupational status: employed Cognitive needs: No Hearing needs: No Vision needs: No Questionnaire PHQ-9 Over the last 2 weeks, how often have you been bothered by any of the following problems? 1. Little interest or pleasure in doing things: not at all 2. Feeling down, depressed, or hopeless: not at all 3. Trouble falling or staying asleep, or sleeping too much: not at all 4. Feeling tired or having little energy: not at all 5. Poor appetite or overeating: not at all 6. Feeling bad about yourself - or that you are a failure or have let yourself or your family down: not at all 7. Trouble concentrating on things, such as reading the newspaper or watching television: not at all 8. Moving or speaking so slowly that other people could have noticed. Or the opposite - being so fidgety or restless that you have been moving around a lot more than usual: not at all 9. Thoughts that you would be better off or of hurting yourself in some way: not at all Total score: 0 Depression Screening Interpretation: Negative Depression Screening Done: Yes 63207 - PHQ-9 Billing: Yes Source: Developed by Drs. Bandar Medrano, Kadie Thomas, Claude Penny and colleagues, with an educational shaun from [employer]. Thrive Questionnaire Date Thrive assessed: 10/05/24 I am a: Patient What is your living situation today?: I have a steady place to live Within the past 12 months, did the food you bought not last and you didn't have the money to get more?: Never true Within the past 12 months, did you worry whether your food would run out before you got money to buy more?: Never true Do you have trouble paying for medicines?: No Do you have trouble getting transportation to medical appointments?: No Do you have trouble paying your heating and electricity bill?: No Do you have trouble taking care of your child, family member or friend?: No Do you have trouble with day-to-day activities such as bathing, preparing meals, shopping, managing finances, etc.?: No Are you currently unemployed and looking for a job?: No Are you interested in more education?: No Please select the resources that you would like help with: None Currently or been in a relationship where the following occur: No concerns reported THRIVE Score: 0 AUDIT C Alcohol Use Questionnaire (AUDIT-C) 1. How often do you have a drink containing alcohol?: Monthly or less 2. How many drinks containing alcohol do you have on a typical day when you are drinking?: 1 or 2 3. How often do you have six or more drinks on one occasion?: Monthly Total Score: 3 Score Reviewed/Action Taken: Yes SRINIVAS-7 AMB Questionnaire SRINIVAS-7 Date SRINIVAS - 7 assessed: 10/05/24 Feeling nervous, anxious, or on edge: 0 = Not at all Not being able to stop or control worryin = Not at all Worrying too much about different things: 0 = Not at all Trouble relaxin = Not at all Being so restless that it is hard to sit still: 0 = Not at all Becoming easily annoyed or irritable: 0 = Not at all Feeling afraid as if something awful might happen: 0 = Not at all Total SRINIVAS-7 score (0-4 normal; 5-9 mild; 10-14 moderate; 15-21 severe): 0 Source: Developed by Drs. Bandar Medrano, Kadie Thomas, Claude Penny and colleagues, with an educational shaun from [employer]. Review of Systems Const Denies chills, Denies fatigue, Denies fever(s), Denies headache(s), Denies malaise and Denies weakness Eyes Denies blurry vision, Denies change in vision, Denies irritation and Denies itchy eyes ENT Denies dysphagia, Denies dizziness, Denies otalgia, Denies headache(s), Denies nasal congestion, Denies neck pain, Denies odynophagia and Denies sore throat Card Denies chest pain, Denies rapid heart rate, Denies irregular heart rhythm, Denies palpitations and Denies dyspnea Resp Denies chest congestion, Denies cough, Denies dyspnea and Denies wheezing GI Denies abdominal pain, Denies bloating, Denies constipation, Denies dysphagia, Denies heartburn, Denies diarrhea, Denies nausea, Denies odynophagia and Denies vomiting Denies hematuria, Denies difficulty urinating, Denies dysuria, Denies urinary frequency and Denies urinary urgency Musc Denies back pain, Denies arthralgias, Denies joint swelling, Denies muscle weakness and Denies neck pain Skin/Breast Denies change in pigmentation, Denies lesions, Denies rash and Denies unusual bruising Neuro Denies dizziness, Denies headache(s), Denies paresthesias and Denies weakness Endo Denies fatigue and Denies palpitations Aller/Immun Denies itchy eyes and Denies wheezing Physical exam (Primary Care) Vital Signs: Last Vital Signs Pulse 81 10/05/24 12:41 BP 112/74 10/05/24 12:41 Pulse Ox 96 10/05/24 12:41 Oxygen Delivery Method Room Air 10/05/24 12:41 BMI result Body Mass Index 41.0 Tobacco/Smoking Status: Tobacco use Status Tobacco use date assessed 10/05/24 10/05/24 12:46 Patient Tobacco Use Status Never used Tobacco 10/05/24 12:46 Tobacco use type Cigarette 10/05/24 12:46 e-Cigarette/Vaping Use Never Used 10/05/24 12:46 PHQ-9: PHQ-9 Score PHQ-9: Total score 0 10/05/24 12:46 Depression Screening Interpretation: Negative Thrive Assessment: Date of Thrive Assessment Date Thrive assessed 10/05/24 10/05/24 12:46 Currently or been in a relationship where the following occur: No concerns reported Const General: no acute distress, alert and awake Orientation/consciousness: patient oriented x3 HENMT Head: Yes normocephalic and Yes atraumatic Ears: external ears normal, TM's normal bilaterally and EAC's normal General nose exam: No nasal discharge present Face and sinus: Yes normal facial exam and Yes sinuses nontender Teeth and gingiva: dentition normal Throat: Yes posterior oropharynx normal and Yes tonsils normal (no TP congestion) Eyes Eyelids: Yes eyelids normal Conjunctivae: conjunctivae normal Pupils: Equal, round and reactive pupils present EOM: EOMs intact bilaterally Neck Neck: Yes no lymphadenopathy and Yes supple Thyroid: Thyroid normal Resp Auscultation: clear to auscultation bilaterally, no rales and no wheezes Cardio Rate: regular rate Rhythm: regular rhythm Heart sounds: no murmurs GI Palpation (GI): Soft to palpation, nontender and No hepatosplenomegaly present Auscultation: normal bowel sounds General: Yes no CVA tenderness Back/Spine/Pelvis Back: no CVA tenderness Thoracic/Lumbar Spine: thoracic and lumbar spine normal to inspection Skin Lesions: no lesions Rashes: no rashes Neuro General: patient oriented x3, moves all extremities, no focal motor deficits and CN's II-XI intact bilaterally Cranial nerves: Yes Equal, round and reactive pupils present Cognition (Neuro): normal cognition Gait exam (Neuro): Normal gait present Extrem General: Yes no clubbing, cyanosis or edema Coding Level of Care Code Est Pt Prev Care 40-64y(39499) Diagnoses Annual physical exam Z00.00 Essential hypertension I10 Impaired fasting glucose R73.01 Pure hypercholesterolemia E78.00 Gout, unspecified cause, unspecified chronicity, unspecified site M10.9 Gout site: unspecified site Gout etiology: unspecified cause Chronicity: unspecified Glaucoma, unspecified glaucoma type, unspecified laterality H40.9 Glaucoma type: unspecified Laterality: unspecified laterality Morbid obesity with BMI of 40.0-44.9, adult E66.01; Z68.41 Additional Codes PHQ-9 - 93492 - PHQ-9 Billing: Yes ([id number]) Assessment & Plan Assessment & Plan (1) Annual physical exam: Code(s): Z00.00 - Encounter for general adult medical examination without abnormal findings Category: Medical Plan: Check labs He is up-to-date with his colon cancer screening - he had his screening colonoscopy last done with Dr. Culp back on 03/27/2024 He had a polyp removed that came out as tubular adenoma on pathology - he is recommended for a repeat colonoscopy in 5 years (2028) (2) Essential hypertension: Code(s): I10 - Essential (primary) hypertension Category: Medical Plan: Reinforced low sodium diet - goal is systolic BP of 120 mm or less Continue Losartan 50 mg QD Patient is reminded to monitor his blood pressure regularly (3) Impaired fasting glucose: Code(s): R73.01 - Impaired fasting glucose Category: Medical Plan: His FBS was elevated at 117 mg/dl when last checked in October 2023 Will recheck this again and check his HgbA1c for further evaluation Reinforced low calorie/low carb diet; exercise as tolerated (4) Pure hypercholesterolemia: Code(s): E78.00 - Pure hypercholesterolemia, unspecified Category: Medical Plan: Reinforced low cholesterol diet Patient is advised that his cholesterol levels were elevated when he last had them checked in October 2023, with his total cholesterol at 219 mg/dl and LDL cholesterol at 142 mg//dl Will have patient go and get his cholesterol levels rechecked as well for follow up (5) Gout: Code(s): M10.9 - Gout, unspecified Category: Medical Qualifiers: Gout site: unspecified site Gout etiology: unspecified cause Chronicity: unspecified Qualified Code(s): M10.9 - Gout, unspecified Plan: Patient states that he has not had any flare up of gout recently Reinforced low purine diet Will check his serum uric acid level for follow up Continue Indomethacin 25 mg QID PRN and Medrol dose terry PRN as instructed for gout flares (6) Glaucoma: Code(s): H40.9 - Unspecified glaucoma Category: Medical Qualifiers: Glaucoma type: unspecified Laterality: unspecified laterality Qualified Code(s): H40.9 - Unspecified glaucoma Plan: Continue Timolol maleate 0.5% eyedrops 1 drop into each eye BID Follow up with ophthalmology as scheduled (7) Morbid obesity with BMI of 40.0-44.9, adult: Code(s): E66.01 - Morbid (severe) obesity due to excess calories; Z68.41 - Body mass index [BMI] 40.0-44.9, adult Category: Medical Plan: Reinforced diet/exercise as tolerated/lose weight Plan To return in 1 year for his next annual physical examination but patient is advised that depending on how his labs come out, we may need to see him back sooner for follow up and we will schedule his appointments accordingly when needed Orders: Orders Complete Blood Count Auto Diff Today D64.9 - Anemia, unspecified, Z00.00 - Encounter for general adult medical examination without abnormal findings Lipid Panel Today E78.00 - Pure hypercholesterolemia, unspecified, Z00.00 - Encounter for general adult medical examination without abnormal findings Uric Acid Today M10.9 - Gout, unspecified, Z00.00 - Encounter for general adult medical examination without abnormal findings Prostate Specific Antigen Today N40.0 - Benign prostatic hyperplasia without lower urinary tract symptoms, Z00.00 - Encounter for general adult medical examination without abnormal findings Hemoglobin A1c Today R73.01 - Impaired fasting glucose Comprehensive [place]. Panel Fast Today E78.00 - Pure hypercholesterolemia, unspecified, Z00.00 - Encounter for general adult medical examination without abnormal findings TSH reflex Free T4 Today E78.00 - Pure hypercholesterolemia, unspecified, Z00.00 - Encounter for general adult medical examination without abnormal findings UA CC w/rflx Micro + Cult Today R30.0 - Dysuria, Z00.00 - Encounter for general adult medical examination without abnormal findings Vitamin D 25-OH Total Today E55.9 - Vitamin D deficiency, unspecified, Z00.00 - Encounter for general adult medical examination without abnormal findings
[2024-10-05 12:41] VITALS: BP 112/74; PULSE 81; O2SAT 96; BMI 41.0
--- OUTSIDE RECORDS SUMMARY | 2024-10-05 13:06 | XMS_ITS ---
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 Name Role Phone Michael Eid MD Primary Care Provider Reymundo Rivas Jr REASON FOR VISIT screening Encounters Encounter Location Date Provider Diagnosis [facility] [address] [place], [place] [id number] 03/27/2024 Reymundo Culp Jr Colon cancer screening Z12.11 and Colon polyps K63.5 Assessments Encounter Date Diagnosis (ICD Code) Assessment Notes Treatment Notes Treatment Clinical Notes Section Notes 03/27/2024 Colon cancer screening (ICD-10 - Z12.11) 03/27/2024 Colon polyps (ICD-10 - K63.5) Plan Of Treatment No Information Progress Notes * RADHA JUAREZDOB: [birth year] (59 yo M)Acc No.[id number]:03/27/2024 COLON WITH MAC Patient:?RADHA JUAREZ Provider:?Reymundo Culp MD :[id number]???Age:58 Y???Sex:Male Chuck e:03/27/2024 Address:[address] [place], [place] [id number] Pcp:Michael Eid MD Subjective: * Chief Complaints: * ???1. Screening. * Medical History:? Objective: * Vitals:? Assessment: * Assessment: 1.?Colon cancer screening - Z12.11 (Primary)???2.?Colon polyps - K63.5??? Plan: * Treatment: * Procedure Codes:?14243 COLON OSCOPY AND BIOPSY * * The named appointment provid er may or may not be the originator of this progress note, and it is not deemed complete until electronically signed by the appointment provider. Sign off status: Pending * Provider:?Reymundo Culp MD Date:?1 Generated for Yazmin ford/Jonatan/Jenitting on:?10/05/2024 01:06 PM EDT
--- OUTSIDE RECORDS SUMMARY | 2024-10-05 13:06 | XMS_ITS ---
Author Organization [facility] Address [address] [place] [address] Care Team Providers Care Operations Specialists Name Role Phone Michael Eid MD Primary Care Provider Reymundo Rivas Jr Allergies No Known Allergies REASON FOR VISIT Patient presents today for a colon screening Medications Medication SIG (Take, Route, Frequency, Duration) Notes Start Date End Date Status Losartan Potassium A ctive Metamucil 0.36 GM as directed Orally Active Omeprazole 20 MG 1 capsule Orally Onc e a day for 90 days 06/05/2012 Not-Taking Timolol Maleate 0.5 % INSTILL 1 DROP INT O LEFT EYE EVERY MORNING Ophthalmic for 90 Active Immunizations Vaccine Route Administration Date Status Comme nts Influenza Unknown 02/15/2024 Refused Social History Alcohol Screen Question Answer Notes Did you have a drink contain ing alcohol in the past year? Yes How often did you have a dri nk containing alcohol in the past year? 4 or more times a week (4 points) How many drinks did you have on a typical day when you were drinking in the past year? 1 or 2 drinks (0 point) How often did you have 6 or more drinks on one occasion in the past year? Monthly (2 points) Points 6 Interpretation Positive Problems Problem Type SNOMED Code ICD Code Onset Dates Problem Status W/U Status Risk Notes Problem 470107573 Irritable bowel syndrome with diarrhea (K58.0) Active confirmed Vital Signs Temperature 98.6 degrees Fahrenheit 02/15/20 24 Blood pressure systolic 000 mm Hg 02/15/20 24 Blood pressure diastolic 00 mm Hg 024 Height 70 in 02/15/2024 Weight 294 lb 2 oz lbs 02/15/2024 BMI 42.20 kg/m2 02/15/2024 Encounters Encounter Location Date Provider Diagnosis [facility] [address] [place] [address] 02/15/2024 Reymundo Culp Jr Colon cancer screening Z12.11 and Irritable bowel syndrome with diarrhea K58.0 Assessments Encounter Date Diagnosis (ICD Code) Assessment Notes Treatment Notes Treatment Clinical Notes Section Notes 02/15/2024 Colon cancer screening (ICD-10 - Z12.11) Colonoscopy material was printed We discussed the irritable bowel syndrome today. We discussed the high-fiber diet. We recommended he continue fiber supplementation with Metamucil. He is due for colorectal cancer screening. This will be arranged. He understands risks and benefits and agrees to proceed. 02/15/2024 Irritable bowel syndrome with diarrhea (ICD-10 - K58.0) We discussed the irritable bowel syndrome today. We discussed the high-fiber diet. We recommended he continue fiber supplementation with Metamucil. He is due for colorectal cancer screening. This will be arranged. He understands risks and benefits and agrees to proceed. Plan Of Treatment Treatment Notes Assessment Notes Colon cancer screening Colonoscopy mater ial was printed Future Test Test Name Order Date COLONOSCOPY 02/15/2024 Next Appt Details Follow Up: 1 Year, Reason: Progress Notes * RADHA JUAREZDOB: [birth year] (58 yo M)Acc No.[id number]:02/15/2024 Progress Notes Patient:?RADHA JUAREZ Provider:?Reymundo Culp MD :1965???Age:58 Y???Sex:Male Chuck e:02/15/2024 Address:[address] [place], [place] [id number] Pcp:Michael Eid MD Subjective: * Chief Complaints: * ???1. Patient presents today for a colon screening. * HPI: ???New symptom(s):? The patient is a pleasant 58-year-old man seen today in consultation. He has a history of irritable bowel syndrome with diarrhea predominance. He also has abdominal discomfort with a sensation of hurting . Stools were loose and mucousy prior to institution of treatment with Metamucil. He takes this in capsule form, approximately 10 per day with good relief of his symptoms. He has no complaints of abdominal pain or other change in his bowel habits now. ?Last underwent colonoscopy in 2019 with removal of 2 hyperplastic polyps. Five-year followup was recommended because of his history of adenomas. We reviewed this today. He denies any rectal bleeding, and reports bowel movements are normal on Metamucil. * ROS:?General/Constitutional:?Change in appetite?denies.?Fatigue?denies.?ENT:?Patient denies?difficulty swallowing.?Respiratory:?Patient denies?shortness of breath.?Cardiovascular:?Patient denies?chest pain.?Gastrointestinal:?Comments?See HPI for details.?Genitourinary:?Difficulty urinating?denies.?Incontinence?denies.?Musculoskeletal:?Patient denies?muscle aches.?Skin:?Patient denies?pruritis.?Neurologic:?Patient denies?low back pain.?Psychiatric:?Patient denies?mental or physical abuse.? * Medical History:?Colonoscopy 06/07, hyperplastic polyps, five-year followup for history of prior adenomas, Gout, GERD, Irritable bowel syndrome with diarrhea, Elevated body mass index. * Surgical History:?Removal of back cyst , hemorrhoidectomy , detached retina . * Family History:?Father: dece ased.?Mother: 95 yrs.?Maternal Grand Father: colon/stomach cancer at age 62.? no known hx of colon cancer , liver ds, colon polyps. * Social History:?Tobacco Use:?Tobacco Use/Smoking?Are you a: nonsmoker.?Drugs/Alcohol:?Alcohol Screen?Did you have a drink containing alcohol in the past year??Yes,?How often did you have a drink containing alcohol in the past year??4 or more times a week (4 points),?How many drinks did you have on a typical day when you were drinking in the past year??1 or 2 drinks (0 point),?How often did you have 6 or more drinks on one occasion in the past year??Monthly (2 points),?Points?6,?Interpretation?Positive.?Miscellaneous:?Marital status: . 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 * Medications:?Taking Metamuci l 0.36 GM Capsule as directed Orally , Taking Losartan Potassium , Taking Timolol Maleate 0.5 % Solution INSTILL 1 DROP INTO LEFT EYE EVERY MORNING Ophthalmic , Not-Taking/PRN Omeprazole 20 MG Capsule Delayed Release 1 capsule Orally Once a day, Discontinued MiraLax (colon prep) 8.3 ounce ((238) grams mixed with Gatorade or Crystal Light orally begin at 5:00 p.m. the day before the procedure, Medication List reviewed and reconciled with the patient * Allergies:?N.K.D.A. Objective: * Vitals:?Wt: 294 lb 2 oz, Ht: 70 in, BMI:42.20 Index, BP: 000/00 mm Hg, Temp: 98.6. * Examination: ???General Examination: ?GENERAL APPEARANCE:?in no acute distress.?HEAD:?normocephalic.?EYES:?sclera non-icteric.?ORAL CAVITY:?mucosa moist.?NECK/THYROID:?no lymphadenopathy.?SKIN:?anicteric.?HEART:?S1, S2 normal, no murmurs.?LUNGS:?clear to auscultation bilaterally.?CHEST:?normal shape and expansion.?ABDOMEN:?soft, nontender, nondistended, bowel sounds present, no organomegaly .?EXTREMITIES:?no clubbing, cyanosis, or edema.?PSYCH:?cognitive function intact.? Assessment: * Assessment: 1.?Irritable bowel syndrome with diarrhea - K58.0 (Primary)?2.?Colon cancer screening - Z12.11? We discussed the irritable b owel syndrome today. We discussed the high-fiber diet. We recommended he continue fiber supplementation with Metamucil. He is due for colorectal cancer screening. This will be arranged. He understands risks and benefits and agrees to proceed. Plan: * Treatment: Notes: Colonoscopy material was printed?? * Immunizations:? Influenza (Not administered - Refused: Patient decision) * Procedure Codes:?3017F COLOR ECTAL CA SCREEN DOC REV, G9903 Pt scrn tbco id as non user, G9745 DOC RSN FOR NOT SCREEN/REC F/U HBP * Preventive Medicine:? ??Counseling:?Care goal follow-up plan:?Above Normal BMI Follow-up?Giving encouragement to exercise,?BMI management provided?Yes.? * Follow Up:?1 Year * * Sign off status: Completed true * Provider:?Reymundo Culp MD Date:?0 02/15/2024 Generated for Yazmin ford/Jonatan/eTuzmasmitting on:?10/05/2024 01:06 PM EDT History and Physical Notes * HPI (History of Present Illness) Category Sub-Category Detail Notes Category Not es New symptom(s) The patient is a pleasant 58-year-old man seen today in consultation. He has a history of irritable bowel syndrome with diarrhea predominance. He also has abdominal discomfort with a sensation of hurting . Stools were loose and mucousy prior to institution of treatment with Metamucil. He takes this in capsule form, approximately 10 per day with good relief of his symptoms. He has no complaints of abdominal pain or other change in his bowel habits now. Last underwent colonoscopy in 2019 with removal of 2 hyperplastic polyps. Five-year followup was recommended because of his history of adenomas. We reviewed this today. He denies any rectal bleeding, and reports bowel movements are normal on Metamucil. Examination Category Sub-Category Detail Notes Category Not es General Examination GENERAL APPEARANCE: in no acute di stress HEAD: normocephalic EYES: sclera non-icteric NECK/THYROID: no lymphadenopathy HEART: S1, S2 normal, no mu rmurs CHEST: normal shape and exp ansion LUNGS: clear to auscultatio n bilaterally ABDOMEN: soft, nontender, non distended, bowel sounds present, no organomegaly SKIN: anicteric EXTREMITIES: no clubbing, cyanosi s, or edema PSYCH: cognitive function i ntact ORAL CAVITY: mucosa moist
--- OUTSIDE RECORDS SUMMARY | 2024-10-05 13:06 | XMS_ITS ---
Author Organization [facility] Address [address] [place] [phone] Care Team Providers Care Lumber Piler Name Role Phone Michael Eid MD Primary Care Provider Reymundo Rivas Jr [phone] REASON FOR VISIT pathology Encounters Encounter Location Date Provider Diagnosis [facility] [address] [place] [phone] 04/10/2024 Reymundo Culp Jr Plan Of Treatment No Information Progress Notes * RADHA JUAREZDOB: [birth year] (58 yo M)Acc No.[id number]:04/10/2024 Patient:?RADHA JUAREZ :1965???Age:58 Y???Sex:Male Address:[address] [place] [address], [place] [address] * true * Date:? Generated for Aracelii logan/Jonatan/eTransmitting on:?10/05/2024 01:06 PM EDT
--- OUTSIDE RECORDS SUMMARY | 2024-10-05 13:06 | XMS_ITS | Patient Health Record ---
Author Organization [facility] Address [address] [place] [address] Care Team Providers Care Ground Crewman Aircraft Support Name Role Phone Stanton HEDRICK, [employer] Primary Care Provider Reymundo Rivas Jr Unavailable Allergies No Known Allergies Results Component Value Reference Range Notes Pathology Reviewed date:04/10/2024 03:15:13 PM Interpretation: Performing Lab:[facility], [address] [place] [phone] Notes/Report: Name: Radha Marti Age/Sex: 58/M : 1965 Unit#: [id number] Attend Dr: Reymundo Culp MD Re03/27/24 Status : [facility] Location: [facility] [place] Disch: SPEC : [id number] RECD : 03/27/24 STATUS: NYDIA PHELPS NUM: [id number] MERE: 03/27/24-[address] [facility] [address]: Reymundo Culp MD ENTERED: 03/27/24-11 45 SP TYPE: Surgical OTHR DR: Michael Edi MD ORDERED: HE Stain/3, Gross Micro L4 Diagnosis Colon, right, polype ctomy: Tubular adenoma; negative for high-grade dysplasia. Clinical History Pre-Op Dx: Screening Post-Op Dx: Divertic ulosis, right colon polyp Microscopic Description Microscopic sections reviewed. Material Received Right colon polyp Gross Description Received in formalin labeled ?right colon polyp? are 2 carrillo-pink irregular and papular tissue fragments measuring 0.25 and 0.3 cm, submitted in toto in a cassette labeled A. CEDS Copies To: Reymundo Culp MD [address] [place] [address] Michael Eid MD [facility] [place] Primary Care,[address] [place] [address] Signed (si gnature on file) Shannen Rangel MD 03/28/24 1603 END OF REPORT Reason For Referral No Information Medications Medication SIG (Take, Route, Frequency, Duration) [...] Problem Status W/U Status Risk Notes Problem [id number] Colon cancer screening (Z12.11) Active confirmed Problem 003809330 Irritable bowel syndrome with diarrhea (K58.0) Active confirmed Problem [id number] Gastroesophageal reflux disease without esophagitis (K21.9) Active confirmed Vital Signs Temperature 98.6 degrees Fahrenheit 02/15/2024 Blood pressure diastolic 00 mm Hg 02/15/2024 Height 70 in 02/15/2024 Blood pressure systolic 000 mm Hg 02/15/2024 Weight 294 lb 2 oz lbs 02/15/2024 BMI 42.20 kg/m2 02/15/2024 Encounters Encounter Location Date Provider Diagnosis [facility] Outpatient [address] [place] [phone] 03/27/2024 Reymundo Culp Jr Colon cancer screening Z12.11 and Colon polyps K63.5 [facility] [address] [place] [phone] 02/15/2024 Reymundo Culp Jr Colon cancer screening Z12.11 and Irritable bowel syndrome with diarrhea K58.0 [facility] [address] [place] [phone] 04/10/2024 Reymundo Culp Jr Assessments Encounter Date Diagnosis (ICD Code) Assessment Notes Treatment Notes Treatment Clinical Notes Section Notes 03/27/2024 Colon cancer screening (ICD-10 - Z12.11) 03/27/2024 Colon polyps (ICD-10 - K63.5) 02/15/2024 Colon cancer screening (ICD-10 - Z12.11) [...] and agrees to proceed. Plan Of Treatment Future Test Test Name Order Date COLONOSCOPY 08/16/2013 COLONOSCOPY 03/15/2019 COLONOSCOPY 02/15/2024 Insurance Providers Payer Name Payer Address Payer Phone Subscriber Number Group Number Insured Name Patient Relationship to Insured Coverage Start Date Coverage End Date [facility] [address] [place] [phone] [id number] RADHA MARTI Self - patient is the insured Medical (General) History Medical History History ICD Code Colonoscopy 06/07, hyperplas tic polyps, five-year followup for history of prior adenomas Gout GERD Irritable bowel syndrome with diarrhea Elevated body mass index Surgical History Surgery Date(Month/Year) Removal of back cyst hemorrhoidectomy detached retina
== END 2024-10-05 13:17 | disposition home or self-care (01) ==
LOC: HO.HMCH 12:17
PROVIDERS: PCP Internal Medicine; Visit Provider Internal Medicine
DX: Z00.00 Encounter for general adult medical examination without abnormal findings (principal); E66.01 Morbid (severe) obesity due to excess calories; Z68.41 Body mass index [BMI] 40.0-44.9, adult; I10 Essential (primary) hypertension; R73.01 Impaired fasting glucose; E78.00 Pure hypercholesterolemia, unspecified; M10.9 Gout, unspecified; H40.9 Unspecified glaucoma

== ENCOUNTER 2024-10-05 12:16 | Outpatient (REF) | payer OTHER, SELFPAY ==
[2024-10-05 13:50] LABS: MANUAL DIFF FLAG NO
[2024-10-05 14:08] LABS: Basophils Percent Auto 0.2 % (0-2); Eosinophils Absolute Auto 0.1 X10*3/uL (0.0-0.4); Eosinophils Percent Auto 1.5 % (0-4); Hemoglobin 15.5 g/dl (14.0-18.0); Imm Gran Abs Auto 0.03 X10*3/uL (0.00-0.03); Imm Gran Pct Auto 0.3 % (0.0-0.4); Lymphocytes Absolute Auto 2.7 X10*3/uL (1.2-4.9); Lymphocytes Percent Auto 28.9 % (20-40); Mean Corpuscular HGB Conc 35.2 g/dl (31.0-36.0); Mean Corpuscular Hemoglobin 30.5 pg (27.0-33.0); Mean Corpuscular Volume 86.4 fL (80.0-98.0); Mean Platelet Volume 9.4 fL (9.4-12.4); Monocytes Absolute Auto 0.8 X10*3/uL (0.1-1.2); Monocytes Percent Auto 9.1 % (2-11); Neutrophils Absolute Auto 5.5 x10*3/uL (2.0-8.3); Platelet Count 243 X10*3/uL (160-400); Red Blood Count 5.09 X10*6/uL (4.60-5.80); Red Cell Distribution Width 12.1 % (11.0-16.0); White Blood Count 9.2 X10*3/uL (4.8-10.8)
[2024-10-05 14:13] LABS: Appearance Urine Clear; Color Urine Yellow; Glucose Urine UA Negative (Negative); Leukocyte Esterase Urine Negative (Negative); Nitrite Urine Negative (Negative); Urine Blood Negative (Negative); Urine Ketones Negative (Negative); Urine Protein Negative (Neg-Trace)
[2024-10-05 14:42] LABS: Alanine Aminotransferase 24 U/L (0-40); Albumin Level 4.2 g/dL (3.5-5.0); Anion Gap 13 (12-20); Aspartate Amino Transferase 22 U/L (5-37); Bilirubin Total 0.8 mg/dL (0.0-1.0); Blood Urea Nitrogen 13 mg/dL (9-16); Calcium 9.6 mg/dL (8.4-10.2); Carbon Dioxide 24 mmol/L (22-29); Chloride 105 mmol/L (96-108); Cholesterol 220 mg/dL (<200); Estimated Glomerular Filt Rate > 60; Glucose Fasting 103 mg/dL (60-99); HDL Cholesterol 50 mg/dL (>40); LDL Cholesterol Calculated 142 mg/dL (<100); Potassium 4.2 mmol/L (3.3-5.1); Sodium 138 mmol/L (135-145); Total Protein 7.3 g/dL (6.5-8.0); Triglycerides 141 mg/dL (<150); Uric Acid 7.4 mg/dL (3.4-7.0)
[2024-10-05 14:52] LABS: Prostate Specific Antigen 1.91 ng/mL (<0.05-4.0)
[2024-10-05 14:53] LABS: TSH reflex Free T4 1.61 uIU/mL (0.32-4.0); Vitamin D 25-OH Total 12.8 ng/mL (>30)
[2024-10-05 19:09] LABS: Alkaline Phosphatase 70 U/L (39-117)
== END 2024-10-05 12:17 | disposition home or self-care (01) ==
LOC: HO.LAB 12:16
PROVIDERS: PCP Internal Medicine; Visit Provider Internal Medicine
DX: Z00.00 Encounter for general adult medical examination without abnormal findings (principal); R30.0 Dysuria; D64.9 Anemia, unspecified; E78.00 Pure hypercholesterolemia, unspecified; M10.9 Gout, unspecified; N40.0 Benign prostatic hyperplasia without lower urinary tract symptoms; E59 Dietary selenium deficiency; Z12.5 Encounter for screening for malignant neoplasm of prostate
CPT/HCPCS: 36415; 80053; 80061; 81003; 82306; 84153; 84443; 84550; 85025; 96127